=== PATIENT | male | born 1960 | race African-American/Black ===

== ENCOUNTER 2020-07-08 00:09 | Emergency (ER) | payer BC ==
[~2020-07-08] VITALS: Ht 188 cm; Wt 102.0 kg
[2020-07-08] MEDS ORDERED: CLONIDINE 0.1MG TABLET PO SCH (00:45)
[2020-07-08] MEDS ORDERED: AMLODIPINE 5MG TABLET PO SCH (00:45)
[2020-07-08 00:49] LABS: HEMATOCRIT 43.3 % (42.0-52.0); HEMOGLOBIN 14.3 g/dL (14.0-18.0); MEAN CORPUSCULAR HEMOGLOBIN 30.5 pg (28.0-32.0); MEAN CORPUSCULAR VOLUME 92.2 fL (80.0-94.0); PLATELET 161 x1000/uL (130-400); RED BLOOD CELL COUNT 4.69 mill/uL (4.7-6.1); RED CELL DISTRIBUTION WIDTH 12.7 % (11.6-14.6)
[2020-07-08 00:57] LABS: CHLORIDE 108 mEq/L (98-107)
[2020-07-08 01:59] VITALS: BP 194/132
== END 2020-07-08 01:59 | disposition home or self-care (01) ==
LOC: ER 00:09
DX: I12.9 Hypertensive chronic kidney disease with stage 1 through stage 4 chronic kidney disease, or unspecified chronic kidney disease (principal); N18.9 Chronic kidney disease, unspecified; M19.90 Unspecified osteoarthritis, unspecified site; M25.562 Pain in left knee; M25.561 Pain in right knee; G89.29 Other chronic pain
CPT/HCPCS: 36415; 80053; 85027; 93005; 99284